=== PATIENT | male | born 1930 | race Caucasian/White ===

== ENCOUNTER → 2018-06-23 | Outpatient (CLI) | payer MEDICARE, BC | LOC: COL.LAB 09:21 | DX: C79.89 Secondary malignant neoplasm of other specified sites (principal) ==

== ENCOUNTER → 2018-11-02 | Outpatient (CLI) | payer MEDICARE, BC | LOC: COL.RAD 10-27 08:30 | DX: J39.2 Other diseases of pharynx (principal) ==

== ENCOUNTER 2018-11-16 08:15 | Outpatient (RCR) | payer MEDICARE, BC | END 2019-01-15 | disposition home or self-care (01) | LOC: WSST | DX: R13.12 Dysphagia, oropharyngeal phase (principal) ==

== ENCOUNTER 2020-05-10 07:54 | Emergency (ER) | payer MEDICARE, BC ==
[~2020-05-10] VITALS: Ht 182.9 cm; Wt 69.5 kg
[2020-05-10 08:03] VITALS: TEMP 97
[2020-05-10 09:05] LABS: BASO # 0.1 (0.0-0.2); BASO % 1.3 % (0.0-2.0); EOS # 0.2 (0.0-0.7); EOS % 2.8 % (0-4.0); GRAN # 3.6 (1.4-6.5); GRAN % 66.8 % (42.2-75.2); HEMATOCRIT 42.6 % (42.0-52.0); HEMOGLOBIN 14.5 g/dl (13.5-18.0); LYMPH # 1.1 (1.2-3.4); LYMPH % 20.8 % (20.0-51.0); MEAN CELL VOLUME 93 fl (80.0-100.0); MEAN CORPUSCULAR HEMOGLOBIN 32 pg (27.0-31.0); MEAN CORPUSCULAR HGB CONC 34 g/dl (33.0-37.0); MEAN PLATELET VOLUME 10.3 fl (7.4-10.4); MONO # 0.4 (0.1-0.6); MONO % 7.9 % (1.7-9.3); PLATELET COUNT 152 K/mm3 (130-400); RED BLOOD COUNT 4.59 M/mm3 (4.20-5.60); REDCELL DISTRIBUTION WIDTH-CV 12.3 % (11.5-14.5)
[2020-05-10 09:09] LABS: ALBUMIN 4.2 gm/dL (3.5-5.0); BILIRUBIN,TOTAL 1.4 mg/dL (0.0-1.0); CALCIUM 9.4 mg/dL (8.4-10.2); CREATININE, serum 1.1 (0.66-1.25); POTASSIUM 3.9 mmol/L (3.4-5.0); TOTAL PROTEIN 6.9 gm/dL (6.4-8.2)
[2020-05-10 09:20] LABS: TROPONIN-I 0.021 ng/mL (0.000-0.035)
[2020-05-10 11:03] VITALS: BP 140/77; PULSE 67
[2020-05-10] MEDS ORDERED: CEPHALEXIN500 M1 PO (11:03)
== END 2020-05-10 11:32 | disposition home or self-care (01) ==
LOC: COL.ER 07:54
PROVIDERS: Emergency Medicine
DX: S09.90XA Unspecified injury of head, initial encounter (principal); S61.411A Laceration without foreign body of right hand, initial encounter; W01.0XXA Fall on same level from slipping, tripping and stumbling without subsequent striking against object, initial encounter; Y92.009 Unspecified place in unspecified non-institutional (private) residence as the place of occurrence of the external cause
CPT/HCPCS: J3010